=== PATIENT | male | born 1935 | race Caucasian/White ===

== ENCOUNTER 2017-03-28 21:10 | Emergency (ER) | payer OTHER ==
[~2017-03-28] VITALS: Ht 190.5 cm; Wt 86.2 kg
[~2017-03-28 21:10] MED LIST: ADULT LOW DOSE81 MG PO; GARLIC OIL1 EAC1 PO; LEVOTHYROXINE0.05 MG PO; PRAVACHOL40 MG PO; VITAMIN D1000 UNI1 PO
[2017-03-28 21:11] VITALS: BP 120/51
[2017-03-28 21:35] LABS: HEMATOCRIT 22.1 % (42.0-52.0); HEMOGLOBIN 7.5 gm/dL (14.0-18.0); MCH 35.2 pg (26.0-34.0); MCV 103.5 fL (80.0-100.0); PLATELET COUNT 268 thou/uL (150-400); RBC 2.14 mil/uL (4.50-6.00); WBC 3.1 thou/uL (4.0-11.0)
[2017-03-28 21:38] LABS: MANUAL DIFF YES
[2017-03-28 21:50] LABS: CALCIUM 7.7 mg/dL (8.5-10.1); CREATININE 4.2 mg/dL (0.7-1.3)
[2017-03-28 22:00] LABS: ABSOLUTE NEUTROPHILS 1.6 thou/uL (1.4-8.2); TOTAL CELL COUNT 100
[2017-03-28 22:01] LABS: ANISOCYTOSIS 3+; MACROCYTES 2+; POLYCHROMASIA SLIGHT
== END 2017-03-28 22:14 | disposition home or self-care (01) ==
LOC: ER 21:10
PROVIDERS: Emergency Medicine
DX: D64.9 Anemia, unspecified (principal); I10 Essential (primary) hypertension; Z98.890 Other specified postprocedural states